=== PATIENT | male | born 1960 | race African-American/Black ===

== ENCOUNTER 2022-12-07 12:04 | Inpatient (IN) | payer OTHER ==
[2022-12-07] MEDS ORDERED: IBUPROFEN 400 MG TABLET (FP) PO PRN (13:33)
[2022-12-07] MEDS ORDERED: chlordiazePOXIDE HCL 25 MG CAPSULE PO PRN (13:33)
[2022-12-07] MEDS ORDERED: MAGNESIUM HYDROX 2400MG/30ML ORAL SUSPENSION 30 ML CUP PO PRN (13:33)
[2022-12-07] MEDS ORDERED: NICOTINE 10 MG CARTRIDGE (INHALER) IH PRN (13:33)
[2022-12-07] MEDS ORDERED: METHOCARBAMOL 500 MG TABLET PO PRN (13:33)
[2022-12-07] MEDS ORDERED: BISMUTH SUBSALICYLATE 262 MG/15 ML BTL PO PRN (13:33)
[2022-12-07] MEDS ORDERED: IBUPROFEN 600 MG TABLET (FP) PO PRN (13:33)
[2022-12-07] MEDS ORDERED: NALOXONE HCL 0.4 MG/ML VIAL IM PRN (13:33)
[2022-12-07] MEDS ORDERED: hydrOXYzine PAMOATE 25 MG CAPSULE (FP) PO PRN (13:33)
[2022-12-07] MEDS ORDERED: BENZOCAINE/MENTHOL (CHLORASEPTIC ) LOZENGE MM PRN (13:33)
[2022-12-07] MEDS ORDERED: BENZONATATE 200 MG CAPSULE PO PRN (13:33)
[2022-12-07] MEDS ORDERED: MAG HYDROX/AL HYDROX/SIMETH 30 ML UNIT-DOSE CUP PO PRN (13:33)
[2022-12-07] MEDS ORDERED: LOPERAMIDE HCL 2 MG CAPSULE PO PRN (13:33)
[2022-12-07] MEDS ORDERED: POLYETHYLENE GLYCOL (HEALTHYLAX) 3350 17 GM PACKET PO PRN (13:33)
[2022-12-07] MEDS ORDERED: NALOXONE HCL (KLOXXADO) 8 MG SPRAY NS PRN (13:33)
[2022-12-07] MEDS ORDERED: ACETAMINOPHEN 325 MG TABLET (FP) PO PRN (13:33)
[2022-12-07] MEDS ORDERED: guaiFENesin 600 MG TABLET.ER (FP) PO PRN (13:33)
[2022-12-07] MEDS ORDERED: DICYCLOMINE HCL 10 MG CAPSULE PO PRN (13:33)
[2022-12-07] MEDS ORDERED: ONDANSETRON *ODT* 4 MG TABLET SL PRN (13:33)
[2022-12-07 13:53] VITALS: BMI 21.7
[2022-12-07] MEDS: PRENATAL VITAMINS W/ FOLIC ACID TABLET (FP) PO SCH (14:58)
[2022-12-07] MEDS: NICOTINE 7 MG/24 HOURS TOPICAL PATCH TD SCH (14:58)
[2022-12-07 17:15] LABS: HEMATOCRIT 38.5 % (35.4-49); HEMOGLOBIN 13.3 GM/dL (11.7-16.9); MCH 30.9 pg (25.7-33.7); MCHC 34.6 g/dl (32.0-35.9); MEAN CELL VOLUME 89.4 fl (80-96); MEAN PLT VOLUME 8.8 fl (7.5-11.1); PLATELET COUNT 181 10^3/uL (134-434); RBC 4.31 M/mm3 (4.00-5.60); RDW 12.8 % (11.9-15.9); WHITE BLOOD COUNT 4.5 K/mm3 (4.0-10.0)
[2022-12-07 17:49] LABS: ALBUMIN 3.5 g/dl (3.4-5.0); BLOOD UREA NITROGEN 11.1 mg/dL (7-18)
[2022-12-07 17:52] LABS: CREATININE 0.7 mg/dL (0.55-1.3)
[2022-12-07 17:53] LABS: BILIRUBIN,TOTAL 0.2 mg/dL (0.2-1)
[2022-12-07 17:54] LABS: TOT PROT 6.9 g/dl (6.4-8.2)
[2022-12-07] MEDS: chlordiazePOXIDE HCL 25 MG CAPSULE PO SCH ×2 (18:02→23:26)
[2022-12-07] MEDS: MELATONIN 5 MG TABLETS PO SCH (23:23)
[2022-12-07] MEDS: THIAMINE HCL 100 MG TABLET (FP) PO SCH (23:23)
[2022-12-08] MEDS: chlordiazePOXIDE HCL 25 MG CAPSULE PO SCH ×4 (05:37→23:00)
[2022-12-08] MEDS: NICOTINE 7 MG/24 HOURS TOPICAL PATCH TD SCH (10:50)
[2022-12-08] MEDS: PRENATAL VITAMINS W/ FOLIC ACID TABLET (FP) PO SCH (10:50)
[2022-12-08] MEDS: LACTULOSE 20 GM/30 ML UDC (FOR ORAL USE ONLY) PO SCH ×2 (13:56→23:00)
[2022-12-08] MEDS: THIAMINE HCL 100 MG TABLET (FP) PO SCH (23:01)
[2022-12-08] MEDS: MELATONIN 5 MG TABLETS PO SCH (23:01)
[2022-12-09] MEDS: chlordiazePOXIDE HCL 25 MG CAPSULE PO SCH ×4 (05:34→22:22)
[2022-12-09] MEDS: LACTULOSE 20 GM/30 ML UDC (FOR ORAL USE ONLY) PO SCH ×3 (05:35→22:22)
[2022-12-09] MEDS: PRENATAL VITAMINS W/ FOLIC ACID TABLET (FP) PO SCH (10:41)
[2022-12-09] MEDS: NICOTINE 7 MG/24 HOURS TOPICAL PATCH TD SCH (10:43)
[2022-12-09] MEDS: MELATONIN 5 MG TABLETS PO SCH (22:22)
[2022-12-09] MEDS: THIAMINE HCL 100 MG TABLET (FP) PO SCH (22:22)
[2022-12-10] MEDS ORDERED: chlordiazePOXIDE HCL 10 MG CAPSULE PO PRN
[2022-12-10] MEDS: LACTULOSE 20 GM/30 ML UDC (FOR ORAL USE ONLY) PO SCH ×3 (05:23→22:16)
[2022-12-10] MEDS: chlordiazePOXIDE HCL 10 MG CAPSULE PO SCH ×4 (05:23→22:16)
[2022-12-10] MEDS: PRENATAL VITAMINS W/ FOLIC ACID TABLET (FP) PO SCH (10:16)
[2022-12-10] MEDS: NICOTINE 7 MG/24 HOURS TOPICAL PATCH TD SCH (10:16)
[2022-12-10] MEDS: MELATONIN 5 MG TABLETS PO SCH (22:16)
[2022-12-10] MEDS: THIAMINE HCL 100 MG TABLET (FP) PO SCH (22:16)
[2022-12-11] MEDS: chlordiazePOXIDE HCL 10 MG CAPSULE PO SCH ×2 (05:36→17:34)
[2022-12-11] MEDS: LACTULOSE 20 GM/30 ML UDC (FOR ORAL USE ONLY) PO SCH ×3 (05:36→22:05)
[2022-12-11] MEDS: PRENATAL VITAMINS W/ FOLIC ACID TABLET (FP) PO SCH (10:27)
[2022-12-11] MEDS: NICOTINE 7 MG/24 HOURS TOPICAL PATCH TD SCH (10:27)
[2022-12-11 17:35] VITALS: RESP 18
[2022-12-11] MEDS: MELATONIN 5 MG TABLETS PO SCH (22:04)
[2022-12-11] MEDS: THIAMINE HCL 100 MG TABLET (FP) PO SCH (22:05)
[2022-12-12] MEDS ORDERED: chlordiazePOXIDE HCL 10 MG CAPSULE PO ONE (05:00)
[2022-12-12] MEDS: LACTULOSE 20 GM/30 ML UDC (FOR ORAL USE ONLY) PO SCH (06:00)
[2022-12-12 06:33] VITALS: BP 130/82; PULSE 68; TEMP 97.9
== END 2022-12-12 08:50 | disposition home or self-care (01) | DRG 774 ==
LOC: YASAS 12:04 → Y3N 13:57
PROVIDERS: ADMIT Allergy & Immunology; ATTEND Surgery
PROC: HZ2ZZZZ Detoxification Services for Substance Abuse Treatment (ICD-10-PCS; principal; 2022-12-07)
DX: F10.230 Alcohol dependence with withdrawal, uncomplicated (principal); F14.20 Cocaine dependence, uncomplicated; F12.20 Cannabis dependence, uncomplicated; F17.210 Nicotine dependence, cigarettes, uncomplicated; F32.A Depression, unspecified; Z86.19 Personal history of other infectious and parasitic diseases; Z59.02 Unsheltered homelessness
CPT/HCPCS: 36415; 80053; 82140; 85027; 86593; 86780; 87811; 93005; 93010; C9803-CS; U0003; U0005